=== PATIENT | female | born 1940 | race Two or more races ===

== ENCOUNTER 2017-10-20 09:44 | Outpatient (CLI) | payer OTHER | END 2017-10-20 17:00 | disposition home or self-care (01) | LOC: TOM 09:44 | DX: K73.0 Chronic persistent hepatitis, not elsewhere classified (principal); R19.5 Other fecal abnormalities ==

== ENCOUNTER 2017-12-29 09:43 | Outpatient (CLI) | payer OTHER | END 2017-12-29 10:25 | disposition home or self-care (01) | LOC: NUCLEAR 09:43 | DX: I11.9 Hypertensive heart disease without heart failure (principal); R01.1 Cardiac murmur, unspecified; R53.83 Other fatigue; R94.31 Abnormal electrocardiogram [ECG] [EKG] ==

== ENCOUNTER 2019-05-07 08:04 | Outpatient (CLI) | payer OTHER | END 2019-05-07 08:55 | disposition home or self-care (01) | LOC: NUCLEAR 08:04 | DX: I48.91 Unspecified atrial fibrillation (principal) ==

== ENCOUNTER 2020-06-15 10:38 | Outpatient (CLI) | payer OTHER | END 2020-06-15 11:00 | disposition home or self-care (01) | LOC: NUCLEAR 10:38 | PROVIDERS: ATTEND Internal Medicine Cardiovascular Disease | DX: I10 Essential (primary) hypertension (principal); I48.91 Unspecified atrial fibrillation ==

== ENCOUNTER 2020-07-15 12:04 | Outpatient (CLI) | payer OTHER | END 2020-07-15 12:08 | disposition home or self-care (01) | LOC: LAB 12:04 | PROVIDERS: ATTEND Radiology Diagnostic Radiology | DX: N20.0 Calculus of kidney (principal) ==